=== PATIENT | male | born 1970 | race Caucasian/White ===

== ENCOUNTER 2017-09-20 21:03 | Emergency (ER) | payer OTHER ==
[~2017-09-20] VITALS: Ht 172.7 cm; Wt 95.3 kg
[2017-09-20] MEDS ORDERED: NORCO 5-325 TA1 EACH PO (22:24)
[2017-09-20] MEDS ORDERED: IBUPROFEN600 MG PO (22:24)
[2017-09-20] MEDS ORDERED: CYCLOBENZAPRINE5 M3 PO (22:24)
== END 2017-09-20 23:16 | disposition home or self-care (01) ==
LOC: ED 21:03
DX: M62.830 Muscle spasm of back (principal)

== ENCOUNTER 2018-02-17 13:15 | Emergency (ER) | payer OTHER ==
[~2018-02-17] VITALS: Ht 167.6 cm; Wt 97.5 kg
[~2018-02-17 13:15] MED LIST: CYCLOBENZAPRINE5 M3 PO; IBUPROFEN600 MG PO; NORCO 5-325 TA1 EACH PO
[2018-02-17] MEDS ORDERED: SEPTDS PO (13:49)
[2018-02-17] MEDS ORDERED: KEFLEX500 M1 PO (13:49)
== END 2018-02-17 13:59 | disposition home or self-care (01) ==
LOC: ED 13:15
DX: L03.116 Cellulitis of left lower limb (principal); M62.830 Muscle spasm of back

== ENCOUNTER 2018-02-18 11:32 | Inpatient (IN) | payer OTHER ==
[~2018-02-18] VITALS: Ht 167.6 cm; Wt 102.5 kg
[~2018-02-18 11:32] MED LIST changes: +KEFLEX500 M1 PO; +SEPTDS PO
[2018-02-18 11:33] VITALS: BP 157/90
[2018-02-18 12:14] LABS: BASO % 0.2 % (0.0-1.0); EOS % 0.1 % (1.0-4.0); HEMATOCRIT 42.4 % (42.0-52.0); HEMOGLOBIN 14.9 g/dl (14.0-18.0); LYMPH # 0.7 10*3/uL (1.3-4.4); MEAN CORPUSCULAR HGB 30.9 pg (27.0-31.0); MEAN CORPUSCULAR HGB CONC 35.1 g/dl (33.0-37.0); MEAN PLATELET VOLUME 10.5 fl (9.6-12.3); MONO % 6.3 % (3.0-9.0); NEUT # 14.5 10*3/uL (2.3-7.9); NEUT % 89.1 % (47.0-73.0); PLATELET COUNT AUTOMATED 222 10*3/uL (130-400); RED BLOOD COUNT 4.82 10*6/uL (4.50-5.90); RED CELL DISTRI WIDTH 12.9 % (0-14.5); WHITE BLOOD COUNT 16.3 10*3/uL (4.8-10.8)
[2018-02-18 12:22] LABS: ACT PARTIAL THROMBO TIME 27.8 SECONDS (20.8-31.5)
[2018-02-18 12:31] LABS: ALBUMIN 3.3 gm/dl (3.1-4.5); ALKALINE PHOSPHATASE 64 U/L (45-117); BUN 13 mg/dl (7-24); CHLORIDE 105 mmol/L (98-107); CREATININE 1.33 mg/dL (0.70-1.30); POTASSIUM 4.1 mmol/L (3.5-5.1); SGOT/AST 53 IU/L (3-35); SGPT/ALT 99 U/L (12-78); SODIUM 137 mmol/L (136-145); TOTAL PROTEIN 7.2 gm/dL (6.4-8.2)
[2018-02-18 13:23] VITALS: BP 117/66
[2018-02-18 13:45] VITALS: BP 132/65
[2018-02-18 16:00] VITALS: BP 126/72
[2018-02-18 17:55] VITALS: BP 148/84
[2018-02-18 20:00] VITALS: BP 114/58
[2018-02-19] VITALS: BP 121/60
[2018-02-19 05:58] LABS: BASO % 0.5 % (0.0-1.0); EOS # 0.3 10*3/uL (0.0-0.4); EOS % 3.2 % (1.0-4.0); HEMATOCRIT 36.9 % (42.0-52.0); LYMPH # 0.8 10*3/uL (1.3-4.4); LYMPH % 9.4 % (27.0-41.0); MEAN CORPUSCULAR HGB 30.2 pg (27.0-31.0); MEAN CORPUSCULAR HGB CONC 33.6 g/dl (33.0-37.0); MEAN PLATELET VOLUME 10.9 fl (9.6-12.3); NEUT # 6.6 10*3/uL (2.3-7.9); NEUT % 75.6 % (47.0-73.0); PLATELET COUNT AUTOMATED 179 10*3/uL (130-400); RED CELL DISTRI WIDTH 13.1 % (0-14.5); WHITE BLOOD COUNT 8.7 10*3/uL (4.8-10.8)
[2018-02-19 06:01] LABS: HEMOGLOBIN 12.4 g/dl (14.0-18.0)
[2018-02-19 06:22] LABS: ALBUMIN 2.6 gm/dl (3.1-4.5); BUN 12 mg/dl (7-24); CHLORIDE 108 mmol/L (98-107); CHOLESTEROL 126 mg/dL (<200); CREATININE 1.09 mg/dL (0.70-1.30); PHOSPHOROUS 2.2 mg/dL (2.5-4.9); POTASSIUM 4.1 mmol/L (3.5-5.1); SGOT/AST 100 IU/L (3-35); SGPT/ALT 143 U/L (12-78); SODIUM 140 mmol/L (136-145); TOTAL PROTEIN 5.9 gm/dL (6.4-8.2); TRIGLYCERIDES 85 mg/dl (<150); VLDL CHOLESTEROL 17 mg/dL (6-40)
[2018-02-19 06:28] LABS: ALKALINE PHOSPHATASE 59 U/L (45-117); HDL CHOLESTEROL 32 mg/dl (40-60); LDL CHOLESTEROL 77 mg/dL (9-159)
[2018-02-19 08:00] VITALS: BP 130/64
[2018-02-19 08:27] LABS: VITAMIN D, 25-HYDROXY 21.6 ng/mL (30-100)
[2018-02-19 12:00] VITALS: BP 138/77
[2018-02-19 16:00] VITALS: BP 132/74
[2018-02-19 20:00] VITALS: BP 125/77
[2018-02-20 00:28] VITALS: BP 121/68
[2018-02-20 07:01] LABS: ALBUMIN 2.7 gm/dl (3.1-4.5); BUN 10 mg/dl (7-24); CHLORIDE 109 mmol/L (98-107); POTASSIUM 3.8 mmol/L (3.5-5.1); SODIUM 142 mmol/L (136-145); TOTAL PROTEIN 6.1 gm/dL (6.4-8.2)
[2018-02-20 07:03] LABS: ALKALINE PHOSPHATASE 63 U/L (45-117); CREATININE 1.21 mg/dL (0.70-1.30); SGOT/AST 64 IU/L (3-35); SGPT/ALT 140 U/L (12-78)
[2018-02-20 08:00] VITALS: BP 121/71
[2018-02-20 09:11] LABS: HEPATITIS B SURFACE AG Negative (Negative); HEPATITIS C VIRUS ANTIBODY <0.1 s/co (0.0-0.9)
[2018-02-20] MEDS ORDERED: DOXYCYCLINE100 M3 PO (11:34)
[2018-02-20 12:00] VITALS: BP 119/65
== END 2018-02-20 12:37 | disposition home or self-care (01) | DRG 871 ==
LOC: ED 11:32 → EDHOLD 12:38 → 4E 12:38 → EDHOLD 12:53 → 4E 12:53
PROVIDERS: Physician Assistant; Student in an Organized Health Care Education/Training Program
DX: A41.9 Sepsis, unspecified organism (principal); N17.0 Acute kidney failure with tubular necrosis; L03.116 Cellulitis of left lower limb; D72.810 Lymphocytopenia; R73.9 Hyperglycemia, unspecified; R74.0 Nonspecific elevation of levels of transaminase and lactic acid dehydrogenase [LDH]; E55.9 Vitamin D deficiency, unspecified; E53.8 Deficiency of other specified B group vitamins; K76.0 Fatty (change of) liver, not elsewhere classified; Z78.9 Other specified health status; Z79.899 Other long term (current) drug therapy; Z82.49 Family history of ischemic heart disease and other diseases of the circulatory system

== ENCOUNTER → 2018-03-03 | Outpatient (CLI) | payer OTHER ==
[~2018-03-03] MED LIST changes: +DOXYCYCLINE100 M3 PO
== END | disposition home or self-care (01) ==
LOC: RESCLI 01:28
DX: L03.818 Cellulitis of other sites (principal); J30.2 Other seasonal allergic rhinitis; R74.0 Nonspecific elevation of levels of transaminase and lactic acid dehydrogenase [LDH]

== ENCOUNTER 2020-06-29 07:29 | Emergency (ER) | payer OTHER ==
[~2020-06-29] VITALS: Wt 99.8 kg
[2020-06-29] MEDS ORDERED: TESSALON PERLE100 MG PO (08:33)
[2020-06-29] MEDS ORDERED: FLONASE ALLERG9.9 ML NAS (08:33)
[2020-06-29] MEDS ORDERED: NICODERM CQ1 EAC2 T (08:37)
== END 2020-06-29 08:57 | disposition home or self-care (01) ==
LOC: ED 07:29
DX: J06.9 Acute upper respiratory infection, unspecified (principal); R05 Cough; Z20.828 Contact with and (suspected) exposure to other viral communicable diseases

== ENCOUNTER 2025-03-04 18:25 | Emergency (ER) | payer OTHER ==
[~2025-03-04] VITALS: Wt 108.0 kg
[~2025-03-04 18:25] MED LIST changes: +FLONASE ALLERG9.9 ML NAS; +NICODERM CQ1 EAC2 T; +TESSALON PERLE100 MG PO
[2025-03-04] MEDS ORDERED: Tdap Vaccine 0.5 ML SYR (Adult Vaccine) IM ONE (18:55)
[2025-03-04] MEDS ORDERED: CEPHALEXIN500 M1 PO (19:48)
[2025-03-04] MEDS ORDERED: Bacitracin Zinc 14 GM TUBE T ONE (19:50)
[2025-03-04] MEDS ORDERED: CEPHALEXIN 500 MG CAP PO ONE (19:50)
== END 2025-03-04 20:08 | disposition home or self-care (01) ==
LOC: ED 18:25
DX: S62.632A Displaced fracture of distal phalanx of right middle finger, initial encounter for closed fracture (principal); S61.212A Laceration without foreign body of right middle finger without damage to nail, initial encounter; Z79.899 Other long term (current) drug therapy; W23.0XXA Caught, crushed, jammed, or pinched between moving objects, initial encounter; Y93.89 Activity, other specified; Y92.89 Other specified places as the place of occurrence of the external cause; Y99.8 Other external cause status

== ENCOUNTER 2025-03-14 13:16 | Emergency (ER) | payer OTHER ==
[~2025-03-14] VITALS: Ht 172.7 cm; Wt 108.0 kg
[~2025-03-14 13:16] MED LIST changes: +CEPHALEXIN500 M1 PO
== END 2025-03-14 17:00 | disposition left against medical advice (07) ==
LOC: ED 13:16
DX: S61.212D Laceration without foreign body of right middle finger without damage to nail, subsequent encounter (principal); Z48.02 Encounter for removal of sutures; Z53.21 Procedure and treatment not carried out due to patient leaving prior to being seen by health care provider; W45.8XXD Other foreign body or object entering through skin, subsequent encounter